=== PATIENT | female | born 1985 | race Caucasian/White ===

== ENCOUNTER 2021-08-08 08:45 | Outpatient (CLI) | payer OTHER | END 2021-08-08 08:46 | disposition home or self-care (01) | LOC: CSHLAB 08:45 | PROVIDERS: ATTEND Obstetrics & Gynecology | DX: Z01.812 Encounter for preprocedural laboratory examination (principal); Z20.822 Contact with and (suspected) exposure to COVID-19; N80.0 Endometriosis of uterus | CPT/HCPCS: 84703; 85027; 86850; 86900; 86901; U0003; U0005 ==

== ENCOUNTER 2021-08-13 11:06 | Day surgery (SDC) | payer OTHER ==
[2021-08-07 11:16] VITALS: BMI 17.5
[2021-08-08 09:41] LABS: Hemoglobin 13.6 g/dL (12.0-15.5); Mean Corpuscular HGB CONC 33.7 g/dL (32.0-36.0); Mean Corpuscular Hemoglobin 34.4 pg (27.0-33.0); Mean Platelet Volume 11.6 fl (7.4-10.4); Platelet Count 206 10x3/uL (150-450); Red Blood Cell (RBC) Count 3.95 10x6/uL (3.90-5.03); White Blood Cell (WBC) Count 5.2 10x3/uL (3.5-10.5)
[2021-08-08 10:03] LABS: BHCG - Serum Negative (NEGATIVE)
[2021-08-08 10:04] LABS: Pregs Control Background? CLEAR/WHITE (CLR/WHITE); Pregs Control Bar Appear? YES (CONTROL BAR)
[2021-08-08 16:49] LABS: SARS-CoV-2 PCR by NAA Not Detected (NotDetected)
[2021-08-13] MEDS ORDERED: CeleCOXIB 100 MG CAP ONE (11:23)
[2021-08-13] MEDS ORDERED: Gabapentin 300 MG CAP ONE (11:23)
[2021-08-13] MEDS ORDERED: Famotidine/PF 20 mg/2ml Vial ONE (11:24)
[2021-08-13] MEDS ORDERED: Lidocaine 1% MPF 2 ML VIAL ONE (11:24)
[2021-08-13] MEDS ORDERED: PROPOFOL 20 ML ONE (11:57)
[2021-08-13] MEDS ORDERED: Midazolam HCl 2 mg/2 ml Vial ONE ×2 (11:57→12:31)
[2021-08-13] MEDS ORDERED: Fentanyl 250 MCG/5 ML VIAL ONE (11:57)
[2021-08-13] MEDS ORDERED: Ketorolac Tromethamine 30 MG/ML VIAL ONE ×2 (11:59→13:30)
[2021-08-13] MEDS ORDERED: Levofloxacin 500 mg/D5W 100 ml Premix Bag ONE (12:20)
[2021-08-13] MEDS ORDERED: SUGAMMADEX SODIUM 200 MG/2 ML VIAL ONE (12:38)
[2021-08-13] MEDS ORDERED: Promethazine HCl 25 MG/ML VIAL ONE (12:38)
[2021-08-13] MEDS ORDERED: Bupivacaine PF 0.5% 30 ML VIAL ONE (12:43)
[2021-08-13] MEDS ORDERED: EPINEPHrine 1 MG/ML AMP ONE (12:43)
[2021-08-13] MEDS ORDERED: Dexamethasone 4 mg/ml Vial ONE (12:52)
[2021-08-13] MEDS ORDERED: Fentanyl 100 MCG/2 ML VIAL ONE (15:40)
== END 2021-08-13 17:55 | disposition home or self-care (01) ==
LOC: CSHSDC 11:06
PROVIDERS: ATTEND Obstetrics & Gynecology
PROC: 0UT04ZZ Resection of Right Ovary, Percutaneous Endoscopic Approach (ICD-10-PCS; principal; 2021-08-13)
PROC: 0UT74ZZ Resection of Bilateral Fallopian Tubes, Percutaneous Endoscopic Approach (ICD-10-PCS; principal; 2021-08-13)
PROC: 0UT94ZZ Resection of Uterus, Percutaneous Endoscopic Approach (ICD-10-PCS; principal; 2021-08-13)
DX: N80.0 Endometriosis of uterus (principal); N80.3 Endometriosis of pelvic peritoneum; N80.1 Endometriosis of ovary; N88.8 Other specified noninflammatory disorders of cervix uteri; G89.29 Other chronic pain; R10.2 Pelvic and perineal pain; N94.5 Secondary dysmenorrhea; Q79.60 Ehlers-Danlos syndrome, unspecified; Z88.0 Allergy status to penicillin; Z91.018 Allergy to other foods; Z20.822 Contact with and (suspected) exposure to COVID-19
CPT/HCPCS: 84703; 85027; 86850; 86900; 86901; 88307; J0171; J1100; J1885; J1956; J2250; J2550; J2704; J3010; J3490; S0020; S0028; U0003; U0005

== ENCOUNTER 2021-08-16 07:18 | Emergency (ER) | payer OTHER ==
[2021-08-16] MEDS ORDERED: Morphine 4 MG/ML VIAL ONE (08:03)
[2021-08-16] MEDS ORDERED: Ondansetron PF 4 MG/2 ML Vial ONE (08:03)
[2021-08-16 08:33] LABS: #Basophils 0.1 10x3/uL (0.0-0.2); #Monocytes 0.7 10x3/uL (0.0-1.1); #Neutrophils 11.1 10x3/uL (1.5-8.4); %Basophils 0.6 % (0.0-2.0); %Eosinophils 0.3 % (0.0-6.0); %Lymphocytes 6.9 % (18.0-47.0); %Monocytes 5.4 % (0.0-10.0); %Neutrophils 86.6 % (40.0-75.0); Hemoglobin 13.8 g/dL (12.0-15.5); Mean Corpuscular HGB CONC 35.3 g/dL (32.0-36.0); Mean Corpuscular Hemoglobin 34.8 pg (27.0-33.0); Mean Corpuscular Volume 98.5 fl (81.6-98.3); Mean Platelet Volume 11.8 fl (7.4-10.4); Platelet Count 201 10x3/uL (150-450); RBC Distribution Width 12.3 % (11.5-14.5); Red Blood Cell (RBC) Count 3.97 10x6/uL (3.90-5.03); White Blood Cell (WBC) Count 12.8 10x3/uL (3.5-10.5)
[2021-08-16 08:43] LABS: Bilirubin Neg (Negative); Blood, Urine 50 (Negative); Glucose, Urine (Dipstick) Normal (Negative); Ketone, Urine Negative (Negative); Leukocyte 25 (Negative); Nitrite Negative (Negative); Protein, Urine (Dipstick) 30 mg/dl (Neg-Trace); pH, Urine 6.5 (5.0-9.0)
[2021-08-16 08:48] LABS: Clarity Cloudy (Clear)
[2021-08-16 08:53] LABS: Bacteria/HPF Rare-Few HPF (None Seen); Mucous/LPF 2+ LPF (<2+)
[2021-08-16 08:59] LABS: ALT (SGPT) 12 U/L (8-55); AST (SGOT) 15 U/L (5-34); Albumin 4.4 g/dL (3.5-5.0); Alkaline Phosphatase 57 U/L (40-110); Anion Gap 15 mmol/L (10-20); BUN (Urea Nitrogen) 9 mg/dL (7.0-18.7); Bilirubin, Total 0.9 mg/dL (0.2-1.2); Calc. Creatinine Clearance 0 mL/min (70-130); Calcium 9.4 mg/dL (7.8-10.44); Carbon Dioxide 23 mmol/L (22-29); Chloride 106 mmol/L (98-107); Globulin 3.1 g/dL (2.4-3.5); Glucose 140 mg/dL (70-105); Potassium 3.4 mmol/L (3.5-5.1); Protein, Total 7.5 g/dL (6.0-8.3); Sodium 141 mmol/L (136-145)
== END 2021-08-16 12:50 | disposition home or self-care (01) ==
LOC: CSHERS 07:18
DX: N30.00 Acute cystitis without hematuria (principal); R33.9 Retention of urine, unspecified; G89.29 Other chronic pain
CPT/HCPCS: 51702; 80053; 81003; 81015; 85025; 96374; 96375; J2270; J2405

== ENCOUNTER 2021-08-20 22:33 | Emergency (ER) | payer OTHER ==
[2021-08-21] MEDS ORDERED: Morphine 4 MG/ML VIAL ONE (00:14)
[2021-08-21 01:01] LABS: Bilirubin Neg (Negative); Blood, Urine 10 (Negative); Clarity Clear (Clear); Glucose, Urine (Dipstick) Normal (Negative); Ketone, Urine Negative (Negative); Leukocyte Negative (Negative); Nitrite Negative (Negative); Protein, Urine (Dipstick) 15 mg/dl (Neg-Trace); Urobilinogen Normal mg/dL (Less than 2)
[2021-08-21 01:17] LABS: RBC/HPF 0-3 HPF (0-3); Squamous Epithelial 0-3 HPF (0-3)
[2021-08-21 01:18] LABS: Bacteria/HPF None Seen HPF (None Seen); Mucous/LPF 2+ LPF (<2+); Renal Epithelial 0-3 HPF (None Seen); White Blood Cell Cast 0-3 LPF (None Seen)
== END 2021-08-21 02:08 | disposition home or self-care (01) ==
LOC: CSHERS 22:33
DX: R33.9 Retention of urine, unspecified (principal)
CPT/HCPCS: 51702; 81003; 81015; 96372; J2270

== ENCOUNTER 2022-10-17 10:14 | Outpatient (CLI) | payer OTHER | END 2022-10-17 10:15 | disposition home or self-care (01) | LOC: CSHMAMMO 10:14 | PROVIDERS: ATTEND Internal Medicine | DX: Z13.820 Encounter for screening for osteoporosis (principal); M81.0 Age-related osteoporosis without current pathological fracture; K08.20 Unspecified atrophy of edentulous alveolar ridge | CPT/HCPCS: 77080 ==

== ENCOUNTER 2023-06-09 12:03 | Emergency (ER) | payer OTHER ==
[2023-06-09] MEDS ORDERED: Ketorolac Tromethamine 30 MG/ML VIAL ONE (13:01)
[2023-06-09 13:02] LABS: Acetaminophen Less than 10 mcg/mL (10.0-30.0); Alcohol Less than 10.0 mg/dL (Less than 10); Magnesium 1.8 mg/dL (1.6-2.6); Salicylate Less than 8.0 mg/dL (15.0-30.0)
[2023-06-09 13:09] LABS: ALT (SGPT) 14 U/L (8-55); AST (SGOT) 21 U/L (5-34); Albumin 4.3 g/dL (3.5-5.0); Alkaline Phosphatase 55 U/L (40-110); Anion Gap 15 mmol/L (10-20); BUN (Urea Nitrogen) 9 mg/dL (7.0-18.7); Bilirubin, Total 1.1 mg/dL (0.2-1.2); Calc. Creatinine Clearance 0 mL/min (70-130); Calcium 8.8 mg/dL (7.8-10.44); Carbon Dioxide 17 mmol/L (22-29); Chloride 108 mmol/L (98-107); Estimated GFR 110; Globulin 2.8 g/dL (2.4-3.5); Glucose 123 mg/dL (70-105); Potassium 3.7 mmol/L (3.5-5.1); Protein, Total 7.1 g/dL (6.0-8.3); Sodium 136 mmol/L (136-145)
[2023-06-09 13:28] LABS: Hemoglobin 13.5 g/dL (12.0-15.5); Mean Corpuscular HGB CONC 34.6 g/dL (32.0-36.0); Mean Corpuscular Hemoglobin 33.9 pg (27.0-33.0); Mean Platelet Volume 11.4 fl (7.4-10.4); Platelet Count 189 10x3/uL (150-450); RBC Distribution Width 12.1 % (11.5-14.5); Red Blood Cell (RBC) Count 3.98 10x6/uL (3.90-5.03); White Blood Cell (WBC) Count 9.8 10x3/uL (3.5-10.5)
[2023-06-09 13:37] LABS: BHCG - Serum Negative (NEGATIVE); Pregs Control Background? CLEAR/WHITE (CLR/WHITE); Pregs Control Bar Appear? YES (CONTROL BAR)
[2023-06-09 13:50] LABS: MDiff Complete? YES
[2023-06-09 14:01] LABS: Lymphocytes 2 % (21-51); Monocytes 2 % (0-10); Neutrophil 94 % (42-75)
[2023-06-09 14:02] LABS: Platelet Adequacy Comment Appears Adequate; RBC Morph Comment Within Normal Limits; Toxic Granulation SLIGHT; Vacuoles SLIGHT
[2023-06-09 14:06] LABS: SARS-CoV-2 NAA Rapid Test Not Detected (NotDetected)
[2023-06-09 14:46] LABS: Bilirubin Neg (Negative); Blood, Urine Negative (Negative); Clarity Clear (Clear); Glucose, Urine (Dipstick) Normal (Negative); Ketone, Urine 15 mg/dL (Negative); Leukocyte Negative (Negative); Nitrite Negative (Negative); Protein, Urine (Dipstick) Negative (Neg-Trace); Specific Gravity, Urine 1.015 (1.005-1.030); Urobilinogen Normal mg/dL (Less than 2)
[2023-06-09 15:27] LABS: Amphetamine Not Detected (NotDetected); Barbiturates Screen Not Detected (NotDetected); Benzodiazepine Screen Not Detected (NotDetected); Cocaine Metabolite Screen Not Detected (NotDetected); Methadone Not Detected (NotDetected); Methamphetamine Not Detected (NotDetected); Opiate Screen Not Detected (NotDetected); Oxycodone Screen Not Detected (NotDetected); Phencyclidine (PCP) Not Detected (NotDetected); THC/Cannabinoid Screen Detected (NotDetected); Tricyclic Screen Not Detected (NotDetected)
[2023-06-09 15:38] LABS: CAUTI Indications for Culture Pelvic or flank pain; RBC/HPF 0-3 HPF (0-3); WBC/HPF 0-3 HPF (0-3)
[2023-06-09 15:39] LABS: Bacteria/HPF 1+ HPF (None Seen); Renal Epithelial 0-3 HPF (None Seen); Squamous Epithelial 0-3 HPF (0-3); Transitional Epithelial 0-3 HPF (None Seen)
[2023-06-09 15:40] LABS: Urine Culture Reflex No No
== END 2023-06-09 14:39 | disposition home or self-care (01) ==
LOC: CSHERS 12:03
DX: R07.81 Pleurodynia (principal); Z20.822 Contact with and (suspected) exposure to COVID-19
CPT/HCPCS: 36415; 71045; 80053; 80306; 80307; 81001; 83735; 84703; 85025; 85379; 93005; 93010; 96374; J1885

== ENCOUNTER 2023-06-13 14:26 | Emergency (ER) | payer OTHER | END 2023-06-13 16:13 | disposition home or self-care (01) | LOC: CSHERS 14:26 | DX: S90.31XA Contusion of right foot, initial encounter (principal); W20.8XXA Other cause of strike by thrown, projected or falling object, initial encounter ==